=== PATIENT | female | born 1970 | race Caucasian/White ===

== ENCOUNTER 2017-09-15 07:47 | Day surgery (SDC) | payer BC ==
--- NOTE | 2017-09-15 08:33 | Operative Note ---
Upper GI Endoscopy Procedure date: 09/15/17 Date of : 70 Procedure:Upper GI Endoscopy Esophagogastroduodenoscopy with cold biopsies and TTS balloon dilation Indications: Mrs. Perales is a 47-year-old female with RIGHT upper quadrant abdominal pain that sometimes radiates across the upper abdomen but also sometimes radiates into the back. This can occur in the mornings when she awakens or in the evenings. The patient has had this for at least 6 months. She had a normal ultrasound but her HIDA scan did show 28 percent ejection fraction. She did have reproducible symptoms with the fatty meal or shake. The patient does have moderate bloating and gassiness. She reports some nausea and early satiety. She has occasional heartburn. She is not on PPI therapy. She does have frequent loose bowel movements. She also reports occasional dysphagia. She reports no family history of esophageal or stomach cancer. Her mother had lung cancer. This is her first upper endoscopy. Performing Provider: Brennen Montez MD Referring Provider: Sydney Lira PA-C Sedation: Fentanyl 200 mg IV/Versed 10 mg IV Procedure: Prior to the procedure, a history and physical exam was performed, and patients medications and allergies were reviewed. The risks and benefits of the procedure and the sedation options and risks were discussed with the patient. All questions were answered and informed consent was obtained. The patient was brought to the procedure room. Patient identification and proposed procedure were verified by the physician and the nurse. The patient was placed in a left lateral decubitus position and the scope was passed under direct vision. Throughout the procedure, the patient's blood pressure, pulse, and oxygen saturations were monitored continuously. The endoscope was introduced through the mouth, and advanced to the second part of duodenum. The upper GI endoscopy was accomplished without difficulty. The patient tolerated the procedure well. Findings: The scope was passed directly into the upper esophagus and advanced to the third portion of the duodenum. The post bulbar duodenum and duodenal bulb were normal with normal mucosa and conniventes. The scope was withdrawn through a normal duodenal bulb and pylorus into the stomach. There was moderate linear erythema of the antrum was some mild bile reflux. There was some gastric atrophy of the body and fundus. Upon retroflexion there was no hiatal hernia. 2 biopsies were taken in the antrum and along the lesser curvature for histology. 2 biopsies were taken from the fundus of the stomach to rule out gastric atrophy or intestinal metaplasia. The scope was then withdrawn into the esophagus. There was no evidence of reflux esophagitis or Saucedo's. There were tertiary contractions and evidence of moderate esophageal dysmotility. The remainder of the esophageal mucosa was normal. The entire esophagus was dilated to 60 [place]ian/ 20 mm with a TTS hydrostatic balloon. There was some resistance at the cricopharyngeus. Immediate complications: None EBL (ml): 0 Impression: 1. Nonerosive gastroesophageal reflux disease with mild esophageal dysmotility and some cricopharyngeal spasm status post dilatation to 20 mm 2. Mild chronic atrophic gastritis 3. Mild linear reactive antritis/gastritis Recommendations: I will follow-up the biopsies. I do feel the patient has gallbladder dyskinesia based upon her HIDA scan results especially with her reproducible symptoms after the fatty meal/shake and would advise cholecystectomy. I also feel the patient has some functional dyspepsia and functional bowel disease. We will discuss additional dietary measures and treatment options. at [id number]
[2017-09-15 15:46] VITALS: BP 113/74
== END 2017-09-15 10:30 | disposition home or self-care (01) ==
LOC: SDC 07:47
PROVIDERS: Internal Medicine Gastroenterology
PROC: 0D758ZZ Dilation of Esophagus, Via Natural or Artificial Opening Endoscopic (ICD-10-PCS; 2017-09-15)
PROC: 0DB68ZX Excision of Stomach, Via Natural or Artificial Opening Endoscopic, Diagnostic (ICD-10-PCS; principal; 2017-09-15 08:30)
DX: K21.9 Gastro-esophageal reflux disease without esophagitis (principal); K22.4 Dyskinesia of esophagus; K29.40 Chronic atrophic gastritis without bleeding
CPT/HCPCS: C1726